=== PATIENT | female | born 2000 | race Caucasian/White ===

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

== ENCOUNTER → 2018-04-17 | Outpatient (CLI) | payer OTHER ==
[~2018-04-17] MED LIST changes: -OXYC-197 PO; +OXYC1TAB87 PO
--- NOTE | 2018-04-17 14:54 | Diagnostic Imaging Report ---
INDICATION: Left breast lump. TECHNIQUE: Sonographic interrogation of all 4 quadrants in the retroareolar region of the left breast was performed. FINDINGS: At the area of palpable abnormality which corresponds to the 3 o'clock location, no abnormality is seen. No solid or cystic mass is identified. There is a circumscribed hypoechoic nodule at the 10 o'clock location of the left breast 2 cm from the nipple measuring approximately 8 mm x 4 mm x 7 mm. No internal vascularity is seen. No other masses are identified. IMPRESSION: 1. No abnormality is identified at the 3 o'clock location of the left breast at the area of palpable abnormality. 2. Subcentimeter circumscribed hypoechoic nodule at the 10 o'clock location of the left breast 2 cm from the nipple. This has benign features and most likely represents a fibroadenoma. Even so, a followup left breast ultrasound in 6 months is recommended to confirm stability. ACR BI-RADS Category 3: Probably benign findings. Dictated by: Dictated on workstation # [id number]
== END ==
LOC: RAD 14:06
PROVIDERS: ATTEND Physician Assistant
DX: N63.22 Unspecified lump in the left breast, upper inner quadrant (principal)
CPT/HCPCS: 76641